=== PATIENT | male | born 1970 | race Caucasian/White ===

== ENCOUNTER 2017-05-28 16:31 | Inpatient (IN) | payer OTHER ==
[~2017-05-28] VITALS: Ht 170.2 cm; Wt 141.6 kg
[2017-05-28] MEDS ORDERED: SODIUM CHLORIDE 0.9% 1,000 ML IV ONE (17:05)
[2017-05-28] MEDS ORDERED: PANTOPRAZOLE 40 MG/10 ML VIAL IV ONE (17:15)
[2017-05-28 17:16] LABS: Basophils # (auto) 0 uL; Basophils % (auto) 0.4 % (0.0-2.0); Eosinophils # (auto) 0.1 uL; Eosinophils % (auto) 0.8 % (0.0-7.0); Hematocrit 41.6 % (41.0-53.0); Hemoglobin 13.9 g/dL (13.5-17.5); Lymphocytes # (auto) 1.3 uL; Lymphocytes % (auto) 15.4 % (10.0-50.0); Mean Corpuscular Hemoglobin 32.1 pg (28.0-32.0); Mean Corpuscular Hgb Conc. 33.4 g/dL (32.0-36.0); Mean Platelet Volume 9.8 fL (6.9-10.8); Monocytes # (auto) 0.5 uL; Neutrophils # (auto) 6.4 uL; Neutrophils % (auto) 77.4 % (37.0-80.0); Nucleated Red Blood Cells % 0.1 %; Platelet Count (auto) 160 10^3/uL (140-450); Red Cell Distribution Width 13.3 % (11.8-14.3); White Blood Cell 8.3 10^3/uL (4.4-10.8)
[2017-05-28 17:46] LABS: Albumin 3.2 g/dL (3.4-5.0); Alkaline Phosphatase 50 U/L (45-117); Anion Gap 7 (5-15); Aspartate Aminotransferase 21 U/L (15-37); BUN/Creatinine Ratio 13.8; Bilirubin, Total 0.2 mg/dL (0.2-1.0); Blood Urea Nitrogen 12 mg/dL (7-18); Calcium 8.3 mg/dL (8.5-10.1); Carbon Dioxide 27 mmol/L (21-32); Chloride 103 mmol/L (98-107); GFR African American 121 mL/min; GFR Non-African American 100 mL/min; Glucose 151 mg/dL (74-106); Magnesium 2.2 mg/dL (1.6-2.6); Potassium 3.6 mmol/L (3.5-5.1); Sodium 137 mmol/L (136-145); Total Protein 7.2 g/dL (6.4-8.2)
[2017-05-28 17:58] LABS: Urine RBC None Seen /hpf (0 - 3)
[2017-05-28] MEDS ORDERED: MORPHINE SULF INJ 2 MG/ML SYRINGE 1ML IV ONE (18:00)
[2017-05-28] MEDS ORDERED: ONDANSETRON HCL 4 MG/2 ML VIAL IV ONE (18:00)
[2017-05-28 18:12] LABS: B-Type Natriuretic Peptide 10.96 pg/mL (0-100)
[2017-05-28 18:18] LABS: Urine Bilirubin Negative (Negative); Urine Blood Negative /uL (Negative); Urine Color Yellow (Yellow); Urine Glucose Normal (Normal); Urine Ketone Negative (Negative); Urine Nitrite Negative (Negative); Urine Urobilinogen Normal (Negative)
[2017-05-28 18:27] LABS: Temperature: 23.9 C (20.0-25.0)
[2017-05-28] MEDS ORDERED: ONDANSETRON HCL 4 MG/2 ML VIAL IV PRN (18:45)
[2017-05-28] MEDS ORDERED: LORazepam 0.5 MG TAB PO PRN (18:45)
[2017-05-28] MEDS ORDERED: MORPHINE SULF INJ 2 MG/ML SYRINGE 1ML IV PRN ×2 (18:45)
[2017-05-28] MEDS ORDERED: ZOLPIDEM TARTRATE 5 MG TAB PO PRN (18:45)
[2017-05-28] MEDS ORDERED: ACETAMINOPHEN 325 MG TAB PO PRN (18:45)
[2017-05-28] MEDS ORDERED: ALUM & MAG HYDROX-SIMETH LIQ(MAALOX) 30 ML PO ONE (18:45)
[2017-05-28] MEDS ORDERED: DEXTROSE (50%) 50ML SYRG IV PRN (18:45)
[2017-05-28] MEDS ORDERED: NITROGLYCERIN 0.4 MG SL TAB SL PRN ×2 (18:45)
[2017-05-28] MEDS ORDERED: FUROSEMIDE 20 MG/2 ML VIAL IV ONE (19:30)
[2017-05-28] MEDS ORDERED: ASPirin 81 mg TAB PO ONE (19:30)
[2017-05-28] MEDS ORDERED: POTASSIUM CHL 10 Meq TABLET PO ONE (19:30)
[2017-05-28] MEDS ORDERED: DOCUSATE SOD 100 MG CAP PO ONE (19:45)
[2017-05-28] MEDS: InsuLIN REG 1unit/0.01ml Soln (100units/ml) SC SCH (22:00)
[2017-05-28 22:25] VITALS: BP 125/70
[2017-05-28] MEDS: ATORVASTATIN 20 MG TAB PO SCH (23:02)
[2017-05-28] MEDS: ENALAPRIL MALEATE 2.5 MG TAB PO SCH (23:02)
[2017-05-28] MEDS: CARVEDILOL 3.125 MG TAB PO SCH (23:03)
[2017-05-28] MEDS: SODIUM CHLOR 0.9% PF (SALINE LOCK) 10ML VIAL IV SCH (23:03)
[2017-05-28] MEDS: ACCU-CHEK COMFORT CURVE STRIP VI SCH (23:04)
[2017-05-28 23:38] VITALS: BP 125/70
[2017-05-29] VITALS (7 sets, daily range): BP systolic 103–129; BP diastolic 57–78
[2017-05-29] MEDS ORDERED: ASCO500C49 PO (01:05)
[2017-05-29] MEDS ORDERED: CYAN100023 PO (01:05)
[2017-05-29] MEDS ORDERED: FOLI1TAB6 PO (01:05)
[2017-05-29] MEDS: SODIUM CHLOR 0.9% PF (SALINE LOCK) 10ML VIAL IV SCH ×2 (05:32→14:00)
[2017-05-29] MEDS: ACCU-CHEK COMFORT CURVE STRIP VI SCH (05:33)
[2017-05-29] MEDS: InsuLIN REG 1unit/0.01ml Soln (100units/ml) SC SCH (05:33)
[2017-05-29 05:42] LABS: Basophils # (auto) 0 uL; Basophils % (auto) 0.3 % (0.0-2.0); Eosinophils # (auto) 0 uL; Eosinophils % (auto) 0.2 % (0.0-7.0); Hematocrit 39.3 % (41.0-53.0); Hemoglobin 13.3 g/dL (13.5-17.5); Lymphocytes # (auto) 1.1 uL; Lymphocytes % (auto) 11.7 % (10.0-50.0); Mean Corpuscular Hemoglobin 32.8 pg (28.0-32.0); Mean Corpuscular Hgb Conc. 33.8 g/dL (32.0-36.0); Mean Platelet Volume 9.8 fL (6.9-10.8); Monocytes # (auto) 1.1 uL; Monocytes % (auto) 11.4 % (0.0-12.0); Neutrophils # (auto) 7.3 uL; Neutrophils % (auto) 76.4 % (37.0-80.0); Nucleated Red Blood Cells % 0.1 %; Platelet Count (auto) 163 10^3/uL (140-450); Red Cell Distribution Width 13.1 % (11.8-14.3); White Blood Cell 9.5 10^3/uL (4.4-10.8)
[2017-05-29] MEDS ORDERED: FUROSEMIDE 20 MG/2 ML VIAL IV SCH (06:00)
[2017-05-29 06:28] LABS: Albumin 3.2 g/dL (3.4-5.0); BUN/Creatinine Ratio 13.8; Bilirubin, Total 0.4 mg/dL (0.2-1.0); Calcium 8.1 mg/dL (8.5-10.1); Magnesium 2.2 mg/dL (1.6-2.6); Potassium 4.2 mmol/L (3.5-5.1); Total Protein 7.3 g/dL (6.4-8.2)
[2017-05-29] MEDS ORDERED: CLOPIDOGREL BISULFATE 75 MG TAB PO SCH (10:00)
[2017-05-29] MEDS ORDERED: POTASSIUM CHL 10 Meq TABLET PO SCH (10:00)
[2017-05-29] MEDS: ENALAPRIL MALEATE 2.5 MG TAB PO SCH (10:37)
[2017-05-29] MEDS: CARVEDILOL 3.125 MG TAB PO SCH ×2 (10:37→21:42)
[2017-05-29] MEDS: DOCUSATE SOD 100 MG CAP PO SCH (10:38)
[2017-05-29] MEDS: ASPirin 81 mg TAB PO SCH (10:38)
[2017-05-29] MEDS: ATORVASTATIN 20 MG TAB PO SCH (21:41)
[2017-05-30] VITALS (7 sets, daily range): BP systolic 95–117; BP diastolic 52–78
[2017-05-30] MEDS: CARVEDILOL 3.125 MG TAB PO SCH ×2 (01:18→22:05)
[2017-05-30] MEDS: SODIUM CHLOR 0.9% PF (SALINE LOCK) 10ML VIAL IV SCH ×4 (01:41→22:02)
[2017-05-30] MEDS ORDERED: METOPROLOL TARTRATE 50 MG TAB PO ONE (04:45)
[2017-05-30] MEDS ORDERED: METOPROLOL TARTRATE 1MG/1ML-5ML VIAL IV ONE (05:00)
[2017-05-30] MEDS ORDERED: GIVE UN DILUTED IV ONE (09:30)
[2017-05-30] MEDS ORDERED: ADENOSINE IV ONE (09:30)
[2017-05-30 09:59] LABS: BUN/Creatinine Ratio 17.6; Calcium 8.7 mg/dL (8.5-10.1); Potassium 4.8 mmol/L (3.5-5.1)
[2017-05-30] MEDS: DOCUSATE SOD 100 MG CAP PO SCH (10:00)
[2017-05-30] MEDS ORDERED: FUROSEMIDE 20 MG/2 ML VIAL IV SCH (10:00)
[2017-05-30] MEDS: ASPirin 81 mg TAB PO SCH (13:27)
[2017-05-30] MEDS: ATORVASTATIN 20 MG TAB PO SCH (22:02)
[2017-05-31 05:00] VITALS: BP 101/57
[2017-05-31] MEDS: SODIUM CHLOR 0.9% PF (SALINE LOCK) 10ML VIAL IV SCH (05:15)
[2017-05-31 07:30] VITALS: BP 104/57
[2017-05-31 07:58] VITALS: BP 92/57
[2017-05-31] MEDS: CARVEDILOL 3.125 MG TAB PO SCH (10:00)
[2017-05-31] MEDS: DOCUSATE SOD 100 MG CAP PO SCH (10:12)
[2017-05-31] MEDS: ASPirin 81 mg TAB PO SCH (10:12)
[2017-05-31] MEDS ORDERED: CAR3125T PO (11:03)
[2017-05-31] MEDS ORDERED: ASPI325T47 PO (11:03)
[2017-05-31 11:52] VITALS: BP 92/57
[2017-05-31 12:27] VITALS: BP 116/72
== END 2017-05-31 12:35 | disposition home or self-care (01) | DRG 292 ==
LOC: EDBD 16:31 → ER 16:31 → TELE 16:32 → TELE-WESTW 22:27
PROVIDERS: ADMIT Internal Medicine; ATTEND Internal Medicine
DX: I50.43 Acute on chronic combined systolic (congestive) and diastolic (congestive) heart failure (principal); I24.9 Acute ischemic heart disease, unspecified; E44.0 Moderate protein-calorie malnutrition; E66.01 Morbid (severe) obesity due to excess calories; E11.9 Type 2 diabetes mellitus without complications; I48.0 Paroxysmal atrial fibrillation; Z68.43 Body mass index [BMI] 50.0-59.9, adult; G47.33 Obstructive sleep apnea (adult) (pediatric)
CPT/HCPCS: 36415; 71010; 80048; 80053; 80061; 81001; 82962; 83036; 83735; 83880; 84443; 84484; 85025; 85379; 93005; 93017; 93306; 94660; 94761; 96361; 96374; 96375; C9113; J0153; J2405